=== PATIENT | female | born 1995 | race African-American/Black ===

== ENCOUNTER 2021-04-14 10:38 | Emergency (ER) | payer MEDICAID ==
[~2021-04-14] VITALS: Ht 165.1 cm; Wt 70.0 kg
[2021-04-14 10:47] VITALS: BP 109/71
[2021-04-14] MEDS ORDERED: IBUP-2029 MT (10:57)
[2021-04-14] MEDS ORDERED: ONDA4TAB11 PO (10:57)
== END 2021-04-14 13:27 | disposition home or self-care (01) ==
LOC: ER 10:38
DX: R50.9 Fever, unspecified (principal); M79.18 Myalgia, other site; Z20.822 Contact with and (suspected) exposure to COVID-19
CPT/HCPCS: 87426; 87804; 99283

== ENCOUNTER 2023-10-19 20:53 | Emergency (ER) | payer MEDICAID ==
[~2023-10-19] VITALS: Ht 162.6 cm; Wt 51.0 kg
[~2023-10-19 20:53] MED LIST: IBUP-2029 MT; ONDA4TAB11 PO
[2023-10-19 21:11] VITALS: O2SAT 98
[2023-10-19] MEDS ORDERED: CETI1TAB MT (21:49)
[2023-10-19] MEDS ORDERED: TUSSL MT (21:49)
[2023-10-19] MEDS ORDERED: BENZ200C52 MT (21:49)
[2023-10-19 22:00] VITALS: BP 128/73; PULSE 83; RESP 16; TEMP 98
== END 2023-10-19 22:30 | disposition home or self-care (01) ==
LOC: ER 20:53
DX: R05.9 Cough, unspecified (principal); Z79.899 Other long term (current) drug therapy
CPT/HCPCS: 99283

== ENCOUNTER 2024-04-07 21:16 | Emergency (ER) | payer OTHER ==
[~2024-04-07] VITALS: Ht 162.6 cm; Wt 52.0 kg
[~2024-04-07 21:16] MED LIST changes: +BENZ200C52 MT; +CETI1TAB MT; +ONDA-239 PO; -ONDA4TAB11 PO; +TUSSL MT
[2024-04-07 21:27] VITALS: TEMP 98.3; O2SAT 100
[2024-04-07 21:49] LABS: CLARITY URINE CLOUDY (CLEAR); COLOR URINE DARK YELLOW (YELLOW); GLUCOSE URINE NEGATIVE (NEGATIVE); KETONES URINE 2+ (NEGATIVE); LEUKOCYTE ESTERASE URINE 2+ (NEGATIVE); NITRITE URINE POSITIVE (NEGATIVE); OCCULT BLOOD URINE 2+ (NEGATIVE); PH URINE 5.5 (4.5-8.0); PROTEIN URINE 2+ (NEGATIVE); SPECIFIC GRAVITY URINE 1.033 (1.005-1.030)
[2024-04-07] MEDS ORDERED: CEPH500C2 MT (22:04)
[2024-04-07 22:46] VITALS: BP 131/90; PULSE 77; RESP 18; O2SAT 99
[2024-04-07 22:46] LABS: BACTERIA URINE 3+; SQUAMOUS EPITHELIAL CELL URINE 1+ /lpf (RARE/1+); WBC URINE TNTC /hpf (0-2)
== END 2024-04-07 22:48 | disposition home or self-care (01) ==
LOC: ER 21:16
DX: O23.41 Unspecified infection of urinary tract in pregnancy, first trimester (principal); N39.0 Urinary tract infection, site not specified; Z3A.01 Less than 8 weeks gestation of pregnancy
CPT/HCPCS: 81003; 81025; 87077; 87186; 99283